=== PATIENT | male | born 1995 | race Caucasian/White ===

== ENCOUNTER 2020-05-02 00:49 | Emergency (ER) | payer SELFPAY ==
[~2020-05-02] VITALS: Ht 180.3 cm; Wt 61.2 kg
[2020-05-02 01:00] VITALS: BP_SYST 130
[2020-05-02 02:19] VITALS: BP_SYST 130
== END 2020-05-02 02:19 | disposition home or self-care (01) ==
LOC: SED 00:49
DX: L29.9 Pruritus, unspecified (principal)
CPT/HCPCS: 99281